=== PATIENT | female | born 1955 | race Caucasian/White ===

== ENCOUNTER 2020-08-17 16:53 | Inpatient (IN) | payer MEDICARE, OTHER ==
[~2020-08-17] VITALS: Ht 167.6 cm; Wt 69.1 kg
[~2020-08-17 16:53] MED LIST: LOTENSIN40 MG PO
[2020-08-17 17:37] LABS: HEMOGLOBIN 14.4 gm/dl (12.3-15.3); RED BLOOD COUNT 4.91 M/UL (4.00-5.10); WHITE BLOOD COUNT 16.1 K/UL (4.5-11.0)
[2020-08-17 18:03] LABS: BUN/CREATININE RATIO 38 (0-10)
--- NOTE | 2020-08-18 00:22 | NUR ---
[address] AT THIS TIME
[2020-08-18 06:07] LABS: HEMOGLOBIN 12.6 gm/dl (12.3-15.3); WHITE BLOOD COUNT 18.4 K/UL (4.5-11.0)
[2020-08-18 06:08] LABS: RED BLOOD COUNT 4.28 M/UL (4.00-5.10)
[2020-08-19 05:35] LABS: HEMOGLOBIN 13.1 gm/dl (12.3-15.3); RED BLOOD COUNT 4.51 M/UL (4.00-5.10)
[2020-08-19 05:36] LABS: WHITE BLOOD COUNT 13.4 K/UL (4.5-11.0)
[2020-08-19 09:15] LABS: HIV SCREEN 4TH GENERATION WRFX Non Reactive (Non Reactive); RPR Non Reactive (Non Reactive)
[2020-08-19 11:15] LABS: HBSAG SCREEN Negative (Negative); HEP A AB, IGM Negative (Negative); HEP B CORE AB, IGM Negative (Negative); HEP C VIRUS AB <0.1 (0.0-0.9)
[2020-08-19 20:12] LABS: CHLAMYDIA TRACHOMATIS, NAA Negative (Negative); NEISSERIA GONORRHOEAE, NAA Negative (Negative)
[2020-08-22 04:55] LABS: HEMOGLOBIN 12.1 gm/dl (12.3-15.3); RED BLOOD COUNT 4.35 M/UL (4.00-5.10); WHITE BLOOD COUNT 10.5 K/UL (4.5-11.0)
[2020-08-23 05:50] LABS: HEMOGLOBIN 12.1 gm/dl (12.3-15.3); RED BLOOD COUNT 4.24 M/UL (4.00-5.10); WHITE BLOOD COUNT 10.1 K/UL (4.5-11.0)
[2020-08-24 04:24] LABS: HEMOGLOBIN 12.3 gm/dl (12.3-15.3); RED BLOOD COUNT 4.26 M/UL (4.00-5.10); WHITE BLOOD COUNT 9.7 K/UL (4.5-11.0)
[2020-08-25 08:11] LABS: HEMOGLOBIN 12.4 gm/dl (12.3-15.3); RED BLOOD COUNT 4.27 M/UL (4.00-5.10); WHITE BLOOD COUNT 8.3 K/UL (4.5-11.0)
[2020-08-26 02:49] LABS: HEMOGLOBIN 11.9 gm/dl (12.3-15.3); RED BLOOD COUNT 4.15 M/UL (4.00-5.10); WHITE BLOOD COUNT 9.7 K/UL (4.5-11.0)
[2020-08-27 03:28] LABS: HEMOGLOBIN 10.9 gm/dl (12.3-15.3); RED BLOOD COUNT 3.79 M/UL (4.00-5.10); WHITE BLOOD COUNT 7.9 K/UL (4.5-11.0)
[2020-08-28 03:33] LABS: HEMOGLOBIN 10.8 gm/dl (12.3-15.3); RED BLOOD COUNT 3.78 M/UL (4.00-5.10); WHITE BLOOD COUNT 7.5 K/UL (4.5-11.0)
[2020-08-28] MEDS ORDERED: CENTRUM MU9 MG/15 ML PO (11:28)
[2020-08-28] MEDS ORDERED: LANTUS INS100 UTS/M1 SC (11:28)
[2020-08-28] MEDS ORDERED: ASPIRIN EC81 MG PO ×3 (11:28→11:36)
[2020-08-28] MEDS ORDERED: ATORVASTATIN CA20 MG PO (11:28)
[2020-08-28] MEDS ORDERED: GLUCOTROL XL 22.5 MG PO (11:28)
[2020-08-28] MEDS ORDERED: AUGMENTIN 875-1 EACH PO (11:35)
--- NOTE | 2020-08-28 14:25 | NUR ---
DISCHARGE INSTRUCTIONS GIVEN. PATIENT VERBALIZED UNDERSTANDING
== END 2020-08-28 14:59 | disposition home or self-care (01) | DRG 896 ==
LOC: ER1 16:53 → CDU 20:04 → M/S 20:04 → CCU 20:04 → M/S 08-21 20:18 → CCU 08-24 → M/S 08-24 16:11
PROVIDERS: Emergency Medicine; Family Medicine; Internal Medicine; Physical Medicine & Rehabilitation Pain Medicine; ADMIT Internal Medicine
PROC: HZ2ZZZZ Detoxification Services for Substance Abuse Treatment (ICD-10-PCS; principal; 2020-08-17)
DX: F10.139 Alcohol abuse with withdrawal, unspecified (principal); G93.41 Metabolic encephalopathy; E11.10 Type 2 diabetes mellitus with ketoacidosis without coma; N39.0 Urinary tract infection, site not specified; E87.1 Hypo-osmolality and hyponatremia; N17.9 Acute kidney failure, unspecified; Z20.822 Contact with and (suspected) exposure to COVID-19; E44.0 Moderate protein-calorie malnutrition; E87.0 Hyperosmolality and hypernatremia; R65.10 Systemic inflammatory response syndrome (SIRS) of non-infectious origin without acute organ dysfunction; F19.10 Other psychoactive substance abuse, uncomplicated; E86.0 Dehydration; L89.320 Pressure ulcer of left buttock, unstageable; L89.150 Pressure ulcer of sacral region, unstageable; N18.30 Chronic kidney disease, stage 3 unspecified; D64.9 Anemia, unspecified; I12.9 Hypertensive chronic kidney disease with stage 1 through stage 4 chronic kidney disease, or unspecified chronic kidney disease; E11.22 Type 2 diabetes mellitus with diabetic chronic kidney disease; Z98.890 Other specified postprocedural states; J45.909 Unspecified asthma, uncomplicated; E11.65 Type 2 diabetes mellitus with hyperglycemia
CPT/HCPCS: 36415; 36600; 51702; 70450; 70551; 71045; 74018; 80048; 80053; 80061; 80074; 80307; 81001; 82140; 82550; 82553; 82803; 82962; 83036; 83605; 83690; 83735; 83874; 83880; 84100; 84132; 84439; 84443; 84484; 85025; 85027; 85610; 85730; 86140; 86592; 87040; 87086; 87389; 92526; 92610; 93005; 96365; 96367; 96375; 97110; 97110-GP-CQ; 97116-GP-CQ; 97162; 97166; 99285; A6212; C9113; G0480; J0696; J1630; J1650; J2060; J3370; J3475; J3480; J3486; J7030; J7070; U0002

== ENCOUNTER 2021-01-30 21:45 | Inpatient (IN) | payer MEDICARE, OTHER ==
[~2021-01-30] VITALS: Ht 162.6 cm; Wt 59.0 kg
[~2021-01-30 21:45] MED LIST changes: +ASPIRIN EC81 MG PO; +ATORVASTATIN CA20 MG PO; +AUGMENTIN 875-1 EACH PO; +CENTRUM MU9 MG/15 ML PO; +GLUCOTROL XL 22.5 MG PO; +LANTUS INS100 UTS/M1 SC
[2021-01-30 22:58] LABS: HEMOGLOBIN 14.4 gm/dl (12.3-15.3); RED BLOOD COUNT 4.78 M/UL (4.00-5.10); WHITE BLOOD COUNT 10.5 K/UL (4.5-11.0)
[2021-01-30 23:59] LABS: BUN/CREATININE RATIO 16 (0-10)
[2021-01-31] MEDS ORDERED: ZYRTEC10 MG PO (12:23)
[2021-02-01 04:50] LABS: HEMOGLOBIN 11.9 gm/dl (12.3-15.3); RED BLOOD COUNT 4.03 M/UL (4.00-5.10); WHITE BLOOD COUNT 7.5 K/UL (4.5-11.0)
[2021-02-02 04:44] LABS: HEMOGLOBIN 12.6 gm/dl (12.3-15.3); RED BLOOD COUNT 4.22 M/UL (4.00-5.10)
[2021-02-02 05:09] LABS: WHITE BLOOD COUNT 4.8 K/UL (4.5-11.0)
[2021-02-03 04:02] LABS: HEMOGLOBIN 11.5 gm/dl (12.3-15.3); RED BLOOD COUNT 3.81 M/UL (4.00-5.10)
--- NOTE | 2021-02-03 14:50 | NUR ---
1450: CANNOT KEEP PATIENT IN THE BED, BED ALARM ON. PATIENT NAKED AND WILL NOT PUT GOWN ON, LAYING ON COUCH IN ROOM, REFUSES TO GET IN THE BED, REPEATEDLY STATES "MAN, JUST LEAVE ME ALONE, I AM NOT BOTHERING YOU".
[2021-02-04 06:49] LABS: HEMOGLOBIN 13.3 gm/dl (12.3-15.3)
[2021-02-04 06:51] LABS: RED BLOOD COUNT 4.54 M/UL (4.00-5.10); WHITE BLOOD COUNT 11.9 K/UL (4.5-11.0)
[2021-02-05 09:15] LABS: HEMOGLOBIN 12.5 gm/dl (12.3-15.3); RED BLOOD COUNT 4.21 M/UL (4.00-5.10); WHITE BLOOD COUNT 10.4 K/UL (4.5-11.0)
--- NOTE | 2021-02-05 13:02 | NUR ---
1235: PATIENT CLIMBING OUT OVER SIDERAIL OF BED, DOES NOT COMPREHEND ANT DIRECTION, SCREAMING AT STAFF TO LEAVE HER ALONE, DR STEINER PRESENT, VO NOTED FOR GEODONE. 1237: GENDONE 10MG GIVEN IN THE RIGHT THIGH, TOLERATED WELL. WILL CONTINUE TO MONITOR CLOSELY.
[2021-02-06 06:56] LABS: HEMOGLOBIN 13.1 gm/dl (12.3-15.3); RED BLOOD COUNT 4.39 M/UL (4.00-5.10)
[2021-02-06 06:58] LABS: WHITE BLOOD COUNT 13.6 K/UL (4.5-11.0)
[2021-02-08 06:41] LABS: HEMOGLOBIN 12.8 gm/dl (12.3-15.3); RED BLOOD COUNT 4.34 M/UL (4.00-5.10); WHITE BLOOD COUNT 11.5 K/UL (4.5-11.0)
[2021-02-09 05:28] LABS: RED BLOOD COUNT 4.07 M/UL (4.00-5.10); WHITE BLOOD COUNT 9.1 K/UL (4.5-11.0)
--- NOTE | 2021-02-09 20:54 | NUR ---
1800 chart review not completed on hi
[2021-02-10 02:58] LABS: RED BLOOD COUNT 4.04 M/UL (4.00-5.10); WHITE BLOOD COUNT 9.7 K/UL (4.5-11.0)
--- NOTE | 2021-02-10 20:45 | NUR ---
1800 CHART REVIEW NOT COMPLETED ON DAY SHIFT
[2021-02-11 08:39] LABS: HEMOGLOBIN 13.5 gm/dl (12.3-15.3)
[2021-02-11 08:40] LABS: RED BLOOD COUNT 4.56 M/UL (4.00-5.10); WHITE BLOOD COUNT 12.9 K/UL (4.5-11.0)
--- NOTE | 2021-02-11 16:52 | NUR ---
1000 HEATHER BUCKNER WITH UROLOGY NOTIFIED OF CONSULT
[2021-02-13 06:42] LABS: HEMOGLOBIN 12.5 gm/dl (12.3-15.3); RED BLOOD COUNT 4.43 M/UL (4.00-5.10); WHITE BLOOD COUNT 9.9 K/UL (4.5-11.0)
[2021-02-16 06:59] LABS: HEMOGLOBIN 11.2 gm/dl (12.3-15.3); RED BLOOD COUNT 3.97 M/UL (4.00-5.10); WHITE BLOOD COUNT 7.1 K/UL (4.5-11.0)
--- NOTE | 2021-02-17 00:07 | NUR ---
1830 PT AT DOORWAY YELLING "i WANT OUT OF HERE i WANT TO GO HOME". THIS RN RECEIVING REPORT. TECH ENTERED ROOM TO ASSIST. PT CONTINUED TO WALK OUT OF ROOM. PT COVID+ ATTEMPTED TO DEESCULATE SPEAKING CALMLY TO PT. PT HIT TECH AND STATED SHE DIDN'T WANT TO LIVE ANYMORE. STATED "I WANT TO KILL MYSELF" PT IS CURRENTLY CONFUSED NOT FOLLOWING COMMANDS AND NOT ANSWERING STAFF APPROPRIATELY. 1927 ATTEMPTED TO CONTACT ONCALL PROVIDER WITHOUT SUCCESS. 1999 RESOURCE NURSE ASSISTED IN GETTING ORDER FOR SITTER AND ORDERING ALLIANCE DIRECTOR FOR AM SI EVALUATION. 2100 PT TOOK SEROQUEL AND XANAX BUT REFUSED ALL OTHER MEDICATIONS. 2300 PT SLEEPING NONLABORED BREATHING RISE AND FALL OF CHEST SEEN. 0001 SECURITY SITTING OUTSIDE ROOM WITHIN EYESIGHT OF PATIENT. THIS RN ENTERED AND EMPTIED MERCER CHECKED ON PATIENT. PT STILL SAD CAN NOT GO HOME. "I JUST WANT TO GO HOME"
[2021-02-17 06:39] LABS: HEMOGLOBIN 11.9 gm/dl (12.3-15.3); RED BLOOD COUNT 4.17 M/UL (4.00-5.10)
[2021-02-18 08:31] LABS: HEMOGLOBIN 12.6 gm/dl (12.3-15.3); RED BLOOD COUNT 4.34 M/UL (4.00-5.10); WHITE BLOOD COUNT 7.2 K/UL (4.5-11.0)
--- NOTE | 2021-02-18 19:41 | NUR ---
PATIENT ATE BEFORE LAST GLUCOSE TAKEN. WHEN I WENT IN TO CHECK SHE REQUESTED NO MORE POKES TO HER FINGER.
--- NOTE | 2021-02-19 05:26 | NUR ---
A RING AND NOTE WAS FOUND IN ROOM AFTER PT WAS DISCHARGED. RING AND NOTE WAS GIVEN TO SECURITY TO LOCK UP IN SAFE.
== END 2021-02-18 21:45 | disposition home or self-care (01) | DRG 177 ==
LOC: ER1 21:45 → PROG CARE 01-31 00:28 → CDU 01-31 00:28 → M/S 01-31 00:28 → PROG CARE 02-01 20:00 → M/S 02-03 12:55
PROVIDERS: Emergency Medicine; Internal Medicine; Internal Medicine Infectious Disease; Internal Medicine Nephrology; ADMIT Internal Medicine
PROC: 8E0ZXY6 Isolation (ICD-10-PCS; principal; 2021-01-31)
PROC: XW033E5 Introduction of Remdesivir Anti-infective into Peripheral Vein, Percutaneous Approach, New Technology Group 5 (ICD-10-PCS; 2021-01-31)
PROC: 3E0333Z Introduction of Anti-inflammatory into Peripheral Vein, Percutaneous Approach (ICD-10-PCS; 2021-01-31)
DX: U07.1 COVID-19 (principal); J12.82 Pneumonia due to coronavirus disease 2019; G92 Toxic encephalopathy; N17.0 Acute kidney failure with tubular necrosis; R45.851 Suicidal ideations; E87.2 Acidosis; N30.00 Acute cystitis without hematuria; E87.1 Hypo-osmolality and hyponatremia; N13.6 Pyonephrosis; E11.649 Type 2 diabetes mellitus with hypoglycemia without coma; I12.9 Hypertensive chronic kidney disease with stage 1 through stage 4 chronic kidney disease, or unspecified chronic kidney disease; E87.6 Hypokalemia; E83.39 Other disorders of phosphorus metabolism; E11.65 Type 2 diabetes mellitus with hyperglycemia; N18.9 Chronic kidney disease, unspecified; E11.22 Type 2 diabetes mellitus with diabetic chronic kidney disease; E83.42 Hypomagnesemia; E86.0 Dehydration; E86.1 Hypovolemia; F19.10 Other psychoactive substance abuse, uncomplicated; E87.8 Other disorders of electrolyte and fluid balance, not elsewhere classified; R13.12 Dysphagia, oropharyngeal phase; Z79.82 Long term (current) use of aspirin; Z79.4 Long term (current) use of insulin
CPT/HCPCS: 36415; 36600; 51701; 70450; 71045; 80048; 80053; 80307; 81001; 82009; 82140; 82436; 82550; 82553; 82565; 82607; 82803; 82962; 83036; 83605; 83690; 83735; 83874; 83935; 84100; 84133; 84295; 84300; 84439; 84443; 84484; 84550; 85025; 85027; 85610; 85730; 86140; 87040; 87086; 93005; 94760; 96374; 96375; 99285; C9113; J0696; J1100; J1644; J2060; J2597; J3475; J3486; J7030; J7070; U0002

== ENCOUNTER 2022-01-20 15:20 | Emergency (ER) | payer MEDICARE, OTHER ==
[~2022-01-20 15:20] MED LIST changes: +ZYRTEC10 MG PO
[2022-01-20 16:43] LABS: HEMOGLOBIN 12.4 gm/dl (12.3-15.3); RED BLOOD COUNT 4.11 M/UL (4.00-5.10); WHITE BLOOD COUNT 7.6 K/UL (4.5-11.0)
== END 2022-01-21 03:41 | disposition short-term general hospital (02) ==
LOC: ER1 15:20
PROVIDERS: Physician Assistant
DX: N13.6 Pyonephrosis (principal); R33.9 Retention of urine, unspecified; N17.9 Acute kidney failure, unspecified; E11.9 Type 2 diabetes mellitus without complications; I10 Essential (primary) hypertension
CPT/HCPCS: 51702; 80053; 81001; 83605; 83690; 85025; 87077; 87086; 87186; 96361; 96374; 99285; J0696